=== PATIENT | male | born 1960 ===

== ENCOUNTER 2022-06-13 06:00 | Day surgery (SDC) | payer OTHER ==
[~2022-06-13] VITALS: Ht 175.3 cm; Wt 86.2 kg
[~2022-06-13 06:00] MED LIST: AMLODIPINE BESY10 MG PO; ATORVASTATIN CA10 MG PO; CANNABIS PO; COZAAR50 MG PO; MULTI VITAMIN1 EACH PO; RAYOS2 MG; [UNRECOGNIZED DRUG - OTHER]; [UNRECOGNIZED DRUG - OTHER] PO
== END 2022-06-13 15:15 | disposition home or self-care (01) ==
LOC: CIR.AMB 06:00
PROVIDERS: ATTEND Anesthesiology Pain Medicine
DX: A52.3 Neurosyphilis, unspecified (principal); G95.9 Disease of spinal cord, unspecified; M51.26 Other intervertebral disc displacement, lumbar region; I10 Essential (primary) hypertension; E78.5 Hyperlipidemia, unspecified; F17.210 Nicotine dependence, cigarettes, uncomplicated; F12.90 Cannabis use, unspecified, uncomplicated